=== PATIENT | female | born 1985 | race Hispanic/Latino ===

== ENCOUNTER 2018-11-09 18:00 | Emergency (ER) | payer OTHER ==
[2018-11-09 18:17] VITALS: RESP 18; TEMP 98.4; O2SAT 98
[2018-11-09] MEDS ORDERED: Albuterol-Ipratrop 3 mg / 0.5 (3 ml) UD INH STA (18:42)
--- NOTE | 2018-11-09 18:54 | ED PDOC ---
HPI: Chest Pain Time Seen by Provider: 11/09/18 18:30 Chief Complaint (Nursing): Palpitations History Per: Patient History/Exam Limitations: no limitations Onset/Duration Of Symptoms: Days (1) Current Symptoms Are (Timing): Still Present Associated Symptoms: Dyspnea Additional Complaint(s): 33 year old female with asthma and panic attacks presents to the ED for an eval uation of dizziness, tiredness and face numbness onset since 4pm yesterday. She reports her doctor switched her control from ANASTASIA to Estarylla. Patient states she currently feels head in the cloud, jet lagged and feels she has clogged ears. Patient is visiting from [place] for work. She currently has facial numbness on both sides with cough, intermittent palpitations and shortness of breath for which she uses a nebulizer at home and is taking Prednisone for the last 5 days. Otherwise, she denies fever, leg swelling or calf tenderness. PMD: located in [place] Past Medical History Reviewed: Historical Data, Nursing Documentation, Vital Signs Vital Signs: Last Vital Signs Temp 98.4 F 11/09/18 18:13 Pulse 94 H 11/09/18 18:13 Resp 18 11/09/18 18:13 BP 132/85 11/09/18 18:13 Pulse Ox 98 11/09/18 18:13 - Medical History PMH: Asthma - Family History Family History: States: Unknown Family Hx - Allergies Allergies/Adverse Reactions: Allergies Allergy/AdvReac Type Severity Reaction Status Date / Time azithromycin AdvReac VOMITING Verified 11/09/18 18:18 Review of Systems ROS Statement: Except As Marked, All Systems Reviewed And Found Negative Constitutional: Positive for: Other (tiredness). Negative for: Fever Musculoskeletal: Negative for: Leg Pain, Other (leg swelling ) Neurological: Positive for: Numbness (face), Headache, Dizziness Physical Exam - Reviewed Nursing Documentation Reviewed: Yes Vital Signs Reviewed: Yes - Physical Exam Appears: Positive for: Well, Non-toxic, No Acute Distress Head Exam: Positive for: ATRAUMATIC, NORMAL INSPECTION, NORMOCEPHALIC Skin: Positive for: Normal Color, Warm, Dry. Negative for: Rash Eye Exam: Positive for: EOMI, Normal appearance, PERRL ENT: Positive for: Normal ENT Inspection, TM Is/Are (WNL) Neck: Positive for: Normal, Painless ROM Cardiovascular/Chest: Positive for: Regular Rate, Rhythm. Negative for: Murmur Respiratory: Positive for: Normal Breath Sounds. Negative for: Decreased Breath Sounds, Respiratory Distress Gastrointestinal/Abdominal: Positive for: Normal Exam, Soft Back: Positive for: Normal Inspection Extremity: Positive for: Normal ROM. Negative for: Tenderness, Pedal Edema, Deformity Neurological/Psych: Positive for: Awake, Alert, Normal Tone, Symmetric/Intact Strength, Oriented (x3), ocular care technologist II-XII. Negative for: Motor/Sensory Deficits, Facial Droop - Laboratory Results Result Diagrams: 11/09/18 19:13 11/09/18 19:13 - ECG ECG: Positive for: Interpreted By Me, Viewed By Me ECG Rhythm: Positive for: Sinus Rhythm. Negative for: ST/T Changes Rate: 97 O2 Sat by Pulse Oximetry: 98 (RA) Pulse Ox Interpretation: Normal Medical Decision Making Medical Decision Making: Time: 1840 Impression: dyspnea and palpitation Plan: EKG CMP ED urine ED urine dipstick CBC w/ differential D Dimer PTT Prothrombin time Chest two views [RAD] Albuterol 3ml Peak flow pre/post TX UA EKG: normal sinus rhythm, 97bpm, no ST/T changes Accession No. : [id number] Patient Name / ID : JES Lucero / [id number] Exam Date : 11/09/2018 18:44:45 ( Approved ) Study Comment : Sex / Age : F / 33Y Creator : Christian Newman MD Dictator : Christian Newman MD Power Shovel Mechanic : Shirt Line Operator : Christian Newman MD Approver2 : Report Date : 11/10/2018 12:40:49 My Comment : Date of service: 11/09/2018 HISTORY: Shortness of breath. COMPARISON: No prior. TECHNIQUE: Chest PA and lateral FINDINGS: LUNGS: No active pulmonary disease. PLEURA: No significant pleural effusion identified. No pneumothorax apparent. CARDIOVASCULAR: No aortic atherosclerotic calcification present. Normal cardiac size. No pulmonary vascular congestion. OSSEOUS STRUCTURES: No significant abnormalities. VISUALIZED UPPER ABDOMEN: Normal. OTHER FINDINGS: None. IMPRESSION: No active disease. Accession No. : [id number] Patient Name / ID : JES LEVI / [id number] Exam Date : 11/09/2018 22:32:25 ( Approved ) Study Comment : Sex / Age : F / 33Y Creator : Christian Newman MD Dictator : Christian Newman MD Power Shovel Mechanic : Shirt Line Operator : Christian Newman MD Approver2 : Report Date : 11/10/2018 11:56:36 My Comment : Date of service: 11/09/2018 PROCEDURE: CT HEAD WITHOUT CONTRAST. HISTORY: Dizziness, palpitations and facial numbness. COMPARISON: None available. TECHNIQUE: Axial computed tomography images were obtained through the head/brain without intravenous contrast. Supplemental Coronal and Sagittal projections created and reviewed. Radiation dose: Total exam DLP = 714.97 mGy-cm. This CT exam was performed using one or more of the following dose reduction techniques: Automated exposure control, adjustment of the mA and/or kV according to patient size, and/or use of iterative reconstruction technique. FINDINGS: HEMORRHAGE: No intracranial hemorrhage. BRAIN: No mass effect or edema. No atrophy or chronic microvascular ischemic changes. VENTRICLES: Unremarkable. No hydrocephalus. CALVARIUM: Unremarkable. PARANASAL SINUSES: Unremarkable as visualized. No significant inflammatory changes. MASTOID AIR CELLS: Unremarkable as visualized. No inflammatory changes. OTHER FINDINGS: None. IMPRESSION: No acute intracranial abnormalities. No significant findings to account for the clinical presentation. 23:00 Pt feels much better, numbness has resolved. Copy of labs and imaging given to patient. Scribe Attestation: Documented by Bharathi Mejia, acting as a scribe for Juana Hays MD Provider Scribe Attestation: All medical record entries made by the Scribe were at my direction and personally dictated by me. I have reviewed the chart and agree that the record accurately reflects my personal performance of the history, physical exam, medical decision making, and the department course for this patient. I have also personally directed, reviewed, and agree with the discharge instructions and disposition. Disposition - Clinical Impression Clinical Impression: Palpitations, Facial numbness - Disposition Referrals: [facility] Perkins [Outside] Disposition: Routine/Home Disposition Time: 23:05 Condition: IMPROVED Additional Instructions: FOLLOW-UP WITH PMD WITHIN 2 DAYS FOR REEVALUATION. Instructions: Palpitations, Paresthesias (DC) Forms: [email or web address] (Malay)
[2018-11-09] MEDS ORDERED: Albuterol-Ipratrop 3 mg / 0.5 (3 ml) UD ONE (19:20)
[2018-11-09 19:42] LABS: BASO % 0.4 % (0.0-2.0); EOS # 0.1 K/uL (0.0-0.7); EOS % 1.8 % (0.0-4.0); HEMOGLOBIN 13.4 g/dL (12.0-16.0); LYMPH # 2.6 K/uL (1.0-4.3); LYMPH % 33.1 % (20.0-40.0); MEAN CELL VOLUME 86.2 fl (81.0-99.0); MEAN CORPUSCULAR HEMOGLOBIN 28.6 pg (27.0-31.0); MEAN CORPUSCULAR HGB CONC 33.1 g/dL (33.0-37.0); MEAN PLATELET VOLUME 8.3 fl (7.2-11.7); MONO # 0.5 K/uL (0.0-0.8); MONO % 5.8 % (0.0-10.0); NEUT # 4.7 K/uL (1.8-7.0); NEUT % 58.9 % (50.0-75.0); NRBC % 0.1 % (0.0-0.0); RBC 4.69 Mil/uL (3.80-5.20); RED CELL DISTRIBUTION WIDTH 12.7 % (11.5-14.5); WHITE BLOOD COUNT 7.9 K/uL (4.8-10.8)
[2018-11-09 19:48] LABS: ALB/GLOB RATIO 1.5 (1.0-2.1); ALBUMIN 4.7 g/dL (3.5-5.0); ALT/SGPT 26 U/L (9-52); AST/SGOT 39 U/L (14-36); BLOOD UREA NITROGEN 18 mg/dl (7-17); CALCIUM 10.3 mg/dL (8.4-10.2); GFR NON-AFRICAN AMERICAN > 60
[2018-11-09 19:58] LABS: SQUAMOUS EPITHIAL 2 /hpf (0-5); URINE BILIRUBIN NEGATIVE (NEGATIVE); URINE BLOOD NEGATIVE (NEGATIVE); URINE CLARITY SLIGHTY-CLOUDY (Clear); URINE COLOR YELLOW (YELLOW); URINE GLUCOSE (UA) NEG (NEGATIVE); URINE LEUKOCYTE ESTERASE NEG Leu/uL (Negative); URINE PROTEIN NEGATIVE (NEGATIVE); URINE UROBILINOGEN 0.2-1.0 mg/dL (0.2-1.0)
[2018-11-09 22:02] LABS: INR 0.9; PROTHROMBIN TIME 10.3 Seconds (9.8-13.1)
[2018-11-09 22:05] LABS: PARTIAL THROMBOPLASTIN TIME 31.9 Seconds (25.6-37.1)
[2018-11-09 22:09] LABS: D DIMER < 200 ng/mlDDU (0-230)
[2018-11-09 23:20] VITALS: BP 125/79
--- NOTE | 2018-11-10 11:59 | CT ---
Date of service: 11/09/2018 PROCEDURE: CT HEAD WITHOUT CONTRAST. HISTORY: Dizziness, palpitations and facial numbness. COMPARISON: None available. TECHNIQUE: Axial computed tomography images were obtained through the head/brain without intravenous contrast. Supplemental Coronal and Sagittal projections created and reviewed. Radiation dose: Total exam DLP = 714.97 mGy-cm. This CT exam was performed using one or more of the following dose reduction techniques: Automated exposure control, adjustment of the mA and/or kV according to patient size, and/or use of iterative reconstruction technique. FINDINGS: HEMORRHAGE: No intracranial hemorrhage. BRAIN: No mass effect or edema. No atrophy or chronic microvascular ischemic changes. VENTRICLES: Unremarkable. No hydrocephalus. CALVARIUM: Unremarkable. PARANASAL SINUSES: Unremarkable as visualized. No significant inflammatory changes. MASTOID AIR CELLS: Unremarkable as visualized. No inflammatory changes. OTHER FINDINGS: None. IMPRESSION: No acute intracranial abnormalities. No significant findings to account for the clinical presentation. Concordant results (preliminary interpretation) provided by [facility] [employer] RAD. Procedure Completed: 22:34 Preliminary Report: Interpreted and electronically signed: 22:48. Final Interpretation: 11:56. November 10, 2018
--- NOTE | 2018-11-10 12:44 | RAD ---
Date of service: 11/09/2018 HISTORY: Shortness of breath. COMPARISON: No prior. TECHNIQUE: Chest PA and lateral FINDINGS: LUNGS: No active pulmonary disease. PLEURA: No significant pleural effusion identified. No pneumothorax apparent. CARDIOVASCULAR: No aortic atherosclerotic calcification present. Normal cardiac size. No pulmonary vascular congestion. OSSEOUS STRUCTURES: No significant abnormalities. VISUALIZED UPPER ABDOMEN: Normal. OTHER FINDINGS: None. IMPRESSION: No active disease.
--- NOTE | 2018-11-10 17:42 | CARD ---
APPROVED REPORT Date of service: 11/09/2018 EKG Measurement Heart [id number] <Conclusion> Normal sinus rhythm Normal ECG
[2018-11-11 17:28] VITALS: PULSE 97
== END 2018-11-09 23:15 | disposition home or self-care (01) ==
LOC: H.ER 18:00
DX: R00.2 Palpitations (principal); R20.2 Paresthesia of skin; Z88.1 Allergy status to other antibiotic agents